=== PATIENT | female | born 1960 ===

== ENCOUNTER 2019-02-28 12:40 | Emergency (ER) | payer OTHER ==
--- NOTE | 2019-02-28 13:20 | RAD REPORT ---
EXAM DESCRIPTION: CT - Head Brain Wo Cont - 02/28/2019 1:12 pm CLINICAL HISTORY: fall, head injury, takes aspirin Fall, head trauma, head injury COMPARISON: Facial Bones W/ Mpr dated 02/28/2019 TECHNIQUE: All CT scans are performed using dose optimization technique as appropriate and may inclu de automated exposure control or mA/KV adjustment according to patient size. FINDINGS: No intracranial hemorrhage, hydrocephalus or extra-axial fluid collection.No areas of brai n edema or evidence of midline shift. The paranasal sinuses and mastoids are clear except for mild mucoperiosteal thickening in the right m axillary antrum. The calvarium is intact. IMPRESSION: No acute intracranial abnormality.
--- NOTE | 2019-02-28 13:23 | RAD REPORT ---
EXAM DESCRIPTION: CT - CTFB CLINICAL HISTORY: FACIAL PAIN COMPARISON: No comparisons TECHNIQUE: Axial 2 mm thick images of the face were obtained with sagittal and coronal reconstructio n images. All CT scans are performed using dose optimization technique as appropriate and may include automated exposure control or mA/KV adjustment according to patient size. FINDINGS: Minimal distal nasal bone fracture is noted.The mandible is intact. The globes and orbital contents are grossly unremarkable.Mucoperiosteal thickening affects the right maxillary antrum. The paranasal sinuses and mastoids are otherwise clear. IMPRESSION: Minimal distal nasal bone fracture.
--- NOTE | 2019-02-28 13:59 | RAD REPORT ---
EXAM DESCRIPTION: RAD - Hand Right 3 View - 02/28/2019 1:41 pm CLINICAL HISTORY: fall, contusion;Pain COMPARISON: No comparisons FINDINGS: No acute fracture or dislocation is evident. Moderate soft tissue swelling is seen adjacen t to the metacarpal heads.
[2019-02-28] MEDS ORDERED: HYDROCODONE/APAP 10/325 TAB ONE (14:13)
--- NOTE | 2019-02-28 15:23 | EDPHYS ---
Physician Documentation [facility] Name: Acosta Rios Age: 58 yrs Sex: Female : 1960 Arrival Date: 02/28/2019 Time: 12:43 Bed 24 Private MD: ED Physician Get Ann HPI: 02/28 13:42 This 58 yrs old Female presents to ER via Ambulatory with complaints of Fall rn Injury, Arm Pain. 13:42 Details of fall: The patient fell from an upright position. Onset: The symptoms/episode rn began/occurred just prior to arrival. Associated injuries: The patient sustained injury to the head, face, arms, knees. Severity of symptoms: At their worst the symptoms were mild, in the emergency department the symptoms are unchanged. The patient has not experienced similar symptoms in the past. Reports her crab got loose while at at [employer], had to convince her to come in, she does not feel like anything is broken, hit face, no LOC, does take aspirin, no focal neurological complaints. Reports tetanus up to date. Remembers all events. Denies ETOh or drugs. Person in room states she is at her baseline mentally. . Historical: - Allergies: 12:49 PENICILLINS; sv - Home Meds: 12:49 aspirin 325 mg Oral tab 4 tabs [Active]; sv - PMHx: 12:49 PTSD; OCD; Depression; Agorophobia; Diabetes - IDDM; Hypertension; sv - PSHx: 12:49 pneumothorax; sv - Immunization history:: Last tetanus immunization: up to date. - Social history:: Smoking status: Patient uses tobacco products, smokes one pack cigarettes per day. - Ebola Screening: : No symptoms or risks identified at this time. - Family history:: not pertinent. - Hospitalizations: : No recent hospitalization is reported. ROS: 13:42 Constitutional: Negative for fever, chills, and weight loss, Eyes: Negative for injury, rn pain, redness, and discharge, Neck: Negative for injury, pain, and swelling, Cardiovascular: Negative for chest pain, palpitations, and edema, Respiratory: Negative for shortness of breath, cough, wheezing, and pleuritic chest pain, Abdomen/GI: Negative for abdominal pain, nausea, vomiting, diarrhea, and constipation, MS/Extremity: + right hand swelling Skin: + abrasions Neuro: Negative for headache, weakness, numbness, tingling, and seizure. Exam: 13:42 Constitutional: This is a well developed, well nourished patient who is awake, alert, rn and in no acute distress. Head/Face: Normocephalic, abrasion to chin, no palpable loose teeth Eyes: Pupils equal round and reactive to light, extra-ocular motions intact. Lids and lashes normal. Conjunctiva and sclera are non-icteric and not injected. Cornea within normal limits. Periorbital areas with no swelling, redness, or edema. ENT: no intraoral trauma Neck: Trachea midline, no thyromegaly or masses palpated, and no cervical lymphadenopathy. Supple, full range of motion without nuchal rigidity, or vertebral point tenderness. No Meningismus. Cardiovascular: Regular rate and rhythm, No pulse deficits. Respiratory: Lungs have equal breath sounds bilaterally, clear to auscultation, No increased work of breathing, no retractions or nasal flaring. Abdomen/GI: soft, non-tender MS/ Extremity: Pulses equal, no cyanosis. Neurovascular intact. Full, normal range of motion. Equal circumference. Multiple abrasions over arms and knees, + contusion and swelling over dorsum of right hand over MCP joints Neuro: Awake and alert, GCS 15, oriented to person, place, time, and situation. Cranial nerves II-XII grossly intact. Motor strength 5/5 in all extremities. Sensory grossly intact. Cerebellar exam normal. Normal gait. Vital Signs: 12:49 BP 126 / 81; Pulse 77; Resp 16; Temp 98; Pulse Ox 98% ; Weight 63.5 kg; Height 5 ft. 9 sv in. (175.26 cm); 13:50 BP 128 / 79; Pulse 56; Resp 19 S; Pulse Ox 98% on R/A; ca1 14:55 BP 129 / 76; Pulse 66; Resp 18 S; Pulse Ox 98% on R/A; ca1 12:49 Body Mass Index 20.67 (63.50 kg, 175.26 cm) sv MDM: 12:54 Patient medically screened. rn 15:18 Differential diagnosis: abrasion, closed head injury, contusion, fracture, sprain, rn strain. Data reviewed: vital signs, nurses notes, radiologic studies, CT scan, plain films, and as a result, I will discharge patient. Counseling: I had a detailed discussion with the patient and/or guardian regarding: the historical points, exam findings, and any diagnostic results supporting the discharge/admit diagnosis, radiology results, the need for outpatient follow up, to return to the emergency department if symptoms worsen or persist or if there are any questions or concerns that arise at home. Special discussion: I discussed with the patient/guardian in detail that at this point there is no indication for admission to the hospital. It is understood, however, that if the symptoms persist or worsen the patient needs to return immediately for re-evaluation. 02/28 13:04 Order name: CT Head Brain wo Cont; Complete Time: 14:11 rn 02/28 13:04 Order name: CT Facial Bones W/O Con; Complete Time: 14:11 rn 02/28 13:04 Order name: XRAY Hand RIGHT 3 View; Complete Time: 14:19 rn 02/28 13:05 Order name: Wound Care; Complete Time: 14:30 rn 02/28 13:05 Order name: Wound dressing; Complete Time: 14:30 rn Administered Medications: 14:02 Drug: [place] 10 mg-325 mg 1 tabs Route: PO; ca1 15:00 Follow up: Response: No adverse reaction; Pain is decreased ca1 Disposition: 02/28/19 15:23 Discharged to Home. Impression: Fracture of nasal bones, Abrasion of knee, Abrasion of forearm, Abrasion of hand. - Condition is Stable. - Discharge Instructions: Abrasion, Contusion, Nasal Fracture. - Prescriptions for Doxycycline Monohydrate 100 mg Oral Tablet - take 1 tablet by ORAL route every 12 hours for 10 days; 20 tablet. Tylenol- Codeine #3 300-30 mg Oral Tablet - take 1 tablet by ORAL route every 6 hours As needed; 15 tablet. - Medication Reconciliation Form, Thank You Letter, Antibiotic Education, Prescription Opioid Use form. - Follow up: Private Physician; When: As needed; Reason: Recheck today's complaints, Re-evaluation by your physician. - Problem is new. - Symptoms have improved. Signatures: Dispatcher [employer] Shantal Haskins RN RN Get Alegria MD MD rn Acob, ANGELA Stone RN ca1 Corrections: (The following items were deleted from the chart) 15:39 15:23 02/28/2019 15:23 Discharged to Home. Impression: Fracture of nasal bones; ca1 Abrasion of knee; Abrasion of forearm; Abrasion of hand. Condition is Stable. Forms are Medication Reconciliation Form, Thank You Letter, Antibiotic Education, Prescription Opioid Use. Follow up: Private Physician; When: As needed; Reason: Recheck today's complaints, Re-evaluation by your physician. Problem is new. Symptoms have improved. rn
--- NOTE | 2019-02-28 15:23 | ER ---
Nurse's Notes [facility] Name: Acosta Rios Age: 58 yrs Sex: Female : 1960 Arrival Date: 02/28/2019 Time: 12:43 Bed 24 Private MD: Diagnosis: Fracture of nasal bones;Abrasion of knee;Abrasion of forearm;Abrasion of hand Presentation: 02/28 12:46 Presenting complaint: Patient states: slipped [place] fell [place] while sv trying to catch a crab. Denies LOC. Abrasions and lacerations noted to alecia legs and alecia arms and mouth/chin. Care prior to arrival: None. 12:46 Method Of Arrival: Ambulatory sv 12:46 Acuity: MERARY 2 sv 12:48 Mechanism of Injury: Fall from standing position. sv 12:49 Transition of care: patient was not received from another setting of care. Onset of sv symptoms was February 28, 2019. 13:05 Risk Assessment: Do you want to hurt yourself or someone else? Patient reports no ca1 desire to harm self or others. 13:05 Initial Sepsis Screen: Does the patient meet any 2 criteria? No. Patient's initial ca1 sepsis screen is negative. Does the patient have a suspected source of infection? No. Patient's initial sepsis screen is negative. Historical: - Allergies: 12:49 PENICILLINS; sv - Home Meds: 12:49 aspirin 325 mg Oral tab 4 tabs [Active]; sv - PMHx: 12:49 PTSD; OCD; Depression; Agorophobia; Diabetes - IDDM; Hypertension; sv - PSHx: 12:49 pneumothorax; sv - Immunization history:: Last tetanus immunization: up to date. - Social history:: Smoking status: Patient uses tobacco products, smokes one pack cigarettes per day. - Ebola Screening: : No symptoms or risks identified at this time. - Family history:: not pertinent. - Hospitalizations: : No recent hospitalization is reported. Screenin:00 Abuse screen: Denies threats or abuse. Denies injuries from another. Nutritional ca1 screening: No deficits noted. Tuberculosis screening: No symptoms or risk factors identified. Fall Risk Fall in past 12 months (25 points). Assessment: 13:00 General: Appears in no apparent distress. comfortable, Behavior is calm, cooperative, ca1 appropriate for age. Pain: Complains of pain in right hand and right arm Pain currently is 5 out of 10 on a pain scale. Pain: Pain began 30 min ago. Neuro: Level of Consciousness is awake, alert, obeys commands, Oriented to person, place, time, situation. Cardiovascular: Heart tones S1 S2 present Capillary refill < 3 seconds Patient's skin is warm and dry. Respiratory: Airway is patent Respiratory effort is even, unlabored, Respiratory pattern is regular, symmetrical, Breath sounds are clear bilaterally. GI: Abdomen is flat, non-distended, Bowel sounds present X 4 quads. Abd is soft and non tender X 4 quads. : No deficits noted. No signs and/or symptoms were reported regarding the genitourinary system. EENT: No deficits noted. No signs and/or symptoms were reported regarding the EENT system. Derm: Skin is fragile, is thin, Skin is pink, warm \T\ dry. Musculoskeletal: Circulation, motion, and sensation intact. Capillary refill < 3 seconds, Range of motion: intact in all extremities, Swelling present in right hand. Injury Description: Abrasion sustained to nose, chin, right hand, left hand and right arm is dirty, was sustained 30-60 minutes ago. 13:50 Reassessment: Patient appears in no apparent distress at this time. Patient is alert, ca1 oriented x 3, equal unlabored respirations, skin warm/dry/pink. Pain meds requested prior to wound cleaning. 14:55 Reassessment: Patient appears in no apparent distress at this time. Patient and/or ca1 family updated on plan of care and expected duration. Pain level reassessed. Patient is alert, oriented x 3, equal unlabored respirations, skin warm/dry/pink. Vital Signs: 12:49 BP 126 / 81; Pulse 77; Resp 16; Temp 98; Pulse Ox 98% ; Weight 63.5 kg; Height 5 ft. 9 sv in. (175.26 cm); 13:50 BP 128 / 79; Pulse 56; Resp 19 S; Pulse Ox 98% on R/A; ca1 14:55 BP 129 / 76; Pulse 66; Resp 18 S; Pulse Ox 98% on R/A; ca1 12:49 Body Mass Index 20.67 (63.50 kg, 175.26 cm) sv ED Course: 12:43 Patient arrived in ED. tw3 12:47 Triage completed. sv 12:50 Arm band placed on. sv 12:54 Get Ann MD is Attending Physician. rn 12:55 Bertha Castrejon, ANGELA is Primary Nurse. ca1 13:00 Patient has correct armband on for positive identification. Placed in gown. Bed in low ca1 position. Call light in reach. Side rails up X 1. Pulse ox on. NIBP on. Warm blanket given. 13:[address] nj 13:13 CT Head Brain wo Cont In Process Unspecified. EDMS 13:13 CT Facial Bones W/O Con In Process Unspecified. EDMS 13:29 X-ray completed. Portable x-ray completed in exam room. Patient tolerated procedure sw well. 13:32 XRAY Hand RIGHT 3 View In Process Unspecified. EDMS 14:05 Wound care: to abrasion, located on right arm and left arm and left hand and face and ca1 chin and nose and right hand was cleaned with Hibiclens, irrigated with normal saline, dressed with 4X4s, Kerlix, Patient tolerated well. 15:39 No provider procedures requiring assistance completed. Patient did not have IV access ca1 during this emergency room visit. Administered Medications: 14:02 Drug: [place] 10 mg-325 mg 1 tabs Route: PO; ca1 15:00 Follow up: Response: No adverse reaction; Pain is decreased ca1 Outcome: 15:23 Discharge ordered by . rn 15:39 Discharged to home ambulatory. ca1 15:39 Condition: stable 15:39 Discharge instructions given to patient, Instructed on discharge instructions, follow up and referral plans. medication usage, Demonstrated understanding of instructions, follow-up care, medications, Prescriptions given X 2. 15:39 Patient left the ED. ca1 Signatures: Dispatcher [employer] EDWA Shantal Gonzalez RN RN Get Ann MD MD rn Warren, Erlin Wahl Tia tw3 Bertha Castrejon RN RN ca1 Corrections: (The following items were deleted from the chart) 12:50 12:46 Acuity: MERARY 3 sv sv 15:39 14:05 Wound care: to abrasion, located on right arm and left arm and left hand and face ca1 and chin and nose and right hand was cleaned with Hibiclens, irrigated with normal saline, Patient tolerated well. ca1
== END 2019-02-28 15:39 | disposition home or self-care (01) ==
LOC: ER 12:40
DX: S02.2XXA Fracture of nasal bones, initial encounter for closed fracture (principal); S80.212A Abrasion, left knee, initial encounter; S80.211A Abrasion, right knee, initial encounter; S40.812A Abrasion of left upper arm, initial encounter; S40.811A Abrasion of right upper arm, initial encounter; S60.511A Abrasion of right hand, initial encounter; W19.XXXA Unspecified fall, initial encounter; F43.10 Post-traumatic stress disorder, unspecified; F32.9 Major depressive disorder, single episode, unspecified; E11.9 Type 2 diabetes mellitus without complications; I10 Essential (primary) hypertension; Z88.0 Allergy status to penicillin; F17.210 Nicotine dependence, cigarettes, uncomplicated
CPT/HCPCS: 70450; 70486; 76377; 99284